=== PATIENT | female | born 1965 | race Caucasian/White ===

== ENCOUNTER 2019-06-08 12:14 | Day surgery (SDC) | payer BC ==
[2019-06-08] MEDS ORDERED: MIDAZOLAM 1 MG/ML 2 ML INJ ×2 (15:28)
[2019-06-08] MEDS ORDERED: FENTAnyl 50 MCG/ML VIAL (15:28)
== END 2019-06-08 15:55 | disposition home or self-care (01) ==
LOC: GIL 12:14
DX: K64.8 Other hemorrhoids (principal); K57.30 Diverticulosis of large intestine without perforation or abscess without bleeding
CPT/HCPCS: 45378; 84703